=== PATIENT | male | born 1955 | race Caucasian/White ===

== ENCOUNTER 2019-03-30 06:00 | Day surgery (SDC) | payer BC, MEDICAID, OTHER ==
[~2019-03-30 06:00] MED LIST: Dextrose 5%-0.45% NaCl 1,000 ML IV SCH; Sodium Chloride 0.9% 10 ML Syringe FLUSH PRN
[2019-03-30] MEDS ORDERED: Midazolam 1 MG/ML 2 ML SDV IV ONE ×3 (06:01→07:03)
[2019-03-30] MEDS ORDERED: fentaNYL 100 MCG/2 ML SDV IV ONE ×3 (06:01→07:01)
[2019-03-30] MEDS ORDERED: fentaNYL 100 MCG/2 ML SDV ONE (06:14)
[2019-03-30] MEDS ORDERED: Midazolam 1 MG/ML 2 ML SDV ONE (06:14)
--- NOTE | 2019-03-30 07:53 | OR ---
DATE: 03/30/2019 PROCEDURE: Esophagogastroduodenoscopy, NBI, and multiple pinch biopsies. INSTRUMENT USED: [id number]-HQ190 Olympus video panendoscope. PREMEDICATIONS: No oral or topical anesthesia used. Fentanyl 100 mcg intravenous, Versed 1.5 mg intravenous, nasal O2 cannula. The procedure was done under pulse oximetry, BP recording, and diagnostic cardiac sonographer. INDICATION: The patient with known Atkins esophagus. Surveillance esophagogastroduodenoscopy is performed for detection of any dysplasia or malignancy, endoscopic hemostasis therapy if needed. DESCRIPTION OF PROCEDURE: The scope was passed with ease. Adequate visualization of the esophagus was made from proximal to distal areas. No upper esophageal lesions identified. No distal esophageal stricture. No uphill or downhill esophageal varices. No Yolanda-Mak tear. No evidence of erosive esophagitis by [place] criteria. No esophageal polyp or tumor mass identified. Proximally, encroaching pink columnar epithelium was noted at around 35 cm distal to the oral verge, NBI and magnification views were made, photographs were taken. Four-quadrant biopsies were taken at 2 cm distance apart from the area 35 cm distal to the oral verge and sent for any histopathologic evidence of dysplasia. No proximal gastric varices noted. Gastric fundus examination by retroflexion showed no polypoid lesions. No gastric ulcer, malignant mass, or vascular ectasia identified. The examination of the stomach was extremely limited due to the presence of a large amount of food material. Duodenal bulb showed no ulcer. Visualized second part of the duodenum was unremarkable. No bleeding was noted from any of the visualized areas at the completion of examination. IMPRESSION: 1. Gastroparesis diabeticorum. 2. Atkins esophagus. The patient tolerated the procedure well. [facility] /[id number]
[2019-03-30 09:09] VITALS: BP 123/59; PULSE 77
== END 2019-03-30 09:14 | disposition home or self-care (01) ==
LOC: DL.ENDO 06:00
PROVIDERS: ATTEND Internal Medicine Gastroenterology
DX: K22.70 Barrett's esophagus without dysplasia (principal); K21.0 Gastro-esophageal reflux disease with esophagitis; E11.43 Type 2 diabetes mellitus with diabetic autonomic (poly)neuropathy; K31.84 Gastroparesis; E78.5 Hyperlipidemia, unspecified; I25.10 Atherosclerotic heart disease of native coronary artery without angina pectoris; M10.9 Gout, unspecified; N40.0 Benign prostatic hyperplasia without lower urinary tract symptoms; I12.9 Hypertensive chronic kidney disease with stage 1 through stage 4 chronic kidney disease, or unspecified chronic kidney disease; E11.22 Type 2 diabetes mellitus with diabetic chronic kidney disease; N18.9 Chronic kidney disease, unspecified
CPT/HCPCS: 43239; J2250; J3010; J7042

== ENCOUNTER 2021-06-22 19:23 | Observation (INO) | payer OTHER, MEDICARE ==
[2021-06-22] MEDS ORDERED: ceFAZolin 1 GM in Sodium Chloride 0.9% 50 ML IV ONE (20:56)
[2021-06-22] MEDS ORDERED: fentaNYL 100 MCG/2 ML SDV IVPUSH ONE (20:57)
[2021-06-22 21:25] LABS: ANION GAP 15.1 mEq/L (7-13); CHLORIDE,CL 102 mmol/L (98-107); SODIUM,NA 137 mmol/L (136-145)
[2021-06-22] MEDS ORDERED: Bisacodyl 5 MG Tab PO PRN (23:13)
[2021-06-22] MEDS ORDERED: oxyCODONE 5 MG Tab PO PRN (23:13)
[2021-06-22] MEDS ORDERED: Morphine 2 MG/ML SYRINGE IVPUSH PRN (23:13)
[2021-06-22] MEDS ORDERED: Docusate Sodium 100 MG Cap PO PRN (23:13)
[2021-06-22] MEDS ORDERED: Ondansetron 4 MG/2 ML SDV IVPUSH PRN (23:13)
[2021-06-22] MEDS ORDERED: 50% Dextrose in Water 50 ML Syringe IVPUSH PRN (23:24)
[2021-06-22] MEDS ORDERED: Glucagon,Human Recombinant 1 MG Vial IM PRN (23:24)
[2021-06-22] MEDS ORDERED: Fludrocortisone 0.1 MG Tab PO SCH (23:30)
[2021-06-22] MEDS ORDERED: SEMAGLUTIDE 2 MG/1.5 ML SQ SCH (23:30)
[2021-06-22] MEDS ORDERED: Cyanocobalamin (Vitamin B12) 1,000 MCG/ML SDV IM SCH (23:30)
[2021-06-22] MEDS: Acetaminophen 325 MG Tab PO PRN (23:46)
[2021-06-22] MEDS: cloNIDine 0.1 MG Tab PO SCH (23:47)
[2021-06-23] MEDS: Acetaminophen 325 MG Tab PO PRN ×2 (04:36→10:29)
[2021-06-23] MEDS ORDERED: Omeprazole 20 MG Cap.CR PO SCH (06:00)
[2021-06-23] MEDS: cloNIDine 0.1 MG Tab PO SCH ×2 (06:38→14:06)
[2021-06-23] MEDS ORDERED: FLAXSEED OIL 1000 MG PO SCH (09:00)
[2021-06-23] MEDS ORDERED: Furosemide 20 MG Tab PO SCH (09:00)
[2021-06-23] MEDS ORDERED: Cholecalciferol (Vitamin D3) 25 MCG Tab PO SCH (09:00)
[2021-06-23] MEDS ORDERED: Aspirin 325 MG Tab.EC PO SCH (09:00)
[2021-06-23] MEDS ORDERED: Calcitriol 0.25 MCG Cap PO SCH (09:00)
[2021-06-23] MEDS ORDERED: Metoprolol Succinate 50 MG Tab.ER PO SCH (09:00)
[2021-06-23] MEDS ORDERED: Enoxaparin 40 MG/0.4 ML Syringe SUBCUT SCH (09:00)
[2021-06-23] MEDS: Ferrous Sulfate 325 MG Tab PO SCH ×2 (10:28→13:40)
[2021-06-23] MEDS: Insulin Lispro 100 Units/ML 3 ML Vial SUBCUT SCH ×2 (10:32→13:40)
[2021-06-23 13:23] VITALS: BP 118/54; PULSE 76
[2021-06-23] MEDS ORDERED: Rosuvastatin 10 MG Tab PO SCH (21:00)
[2021-06-23] MEDS ORDERED: Insulin Glarg,Human.Rec.Analog 100 Unit/ML SUBCUT SCH (21:00)
[2021-06-23] MEDS ORDERED: VALSARTAN 40 MG PO SCH (21:00)
[2021-06-23] MEDS ORDERED: Tamsulosin 0.4 MG Cap.ER PO SCH (21:00)
== END 2021-06-23 13:30 | disposition home or self-care (01) ==
LOC: DL.ED 19:23 → DL.MS 22:47 → DL.ED 22:47
PROVIDERS: ADMIT Internal Medicine; ATTEND Internal Medicine
DX: S82.892A Other fracture of left lower leg, initial encounter for closed fracture (principal); I25.10 Atherosclerotic heart disease of native coronary artery without angina pectoris; E78.00 Pure hypercholesterolemia, unspecified; I10 Essential (primary) hypertension; K21.9 Gastro-esophageal reflux disease without esophagitis; N40.0 Benign prostatic hyperplasia without lower urinary tract symptoms; I12.9 Hypertensive chronic kidney disease with stage 1 through stage 4 chronic kidney disease, or unspecified chronic kidney disease; N18.9 Chronic kidney disease, unspecified; E11.22 Type 2 diabetes mellitus with diabetic chronic kidney disease; E53.8 Deficiency of other specified B group vitamins; E66.9 Obesity, unspecified; M10.9 Gout, unspecified; Z98.890 Other specified postprocedural states; Z95.5 Presence of coronary angioplasty implant and graft; Z20.822 Contact with and (suspected) exposure to COVID-19; W00.2XXA Other fall from one level to another due to ice and snow, initial encounter; Z79.82 Long term (current) use of aspirin; Z79.899 Other long term (current) drug therapy
CPT/HCPCS: 29515; 36415; 73590; 73610; 80053; 82009; 82947; 83605; 85025; 87635; 96365; 96372; 96375; 97161; 97165; 97530; 99285; A9270; G0378; J0690; J1650; J3010; U0002

== ENCOUNTER 2022-08-02 17:35 | Inpatient (IN) | payer OTHER, MEDICARE ==
[2022-08-02] MEDS ORDERED: Sodium Chloride 0.9% 1,000 ML IV ONE (18:46)
[2022-08-02 18:50] LABS: ANION GAP 18.3 mEq/L (7-13); CHLORIDE,CL 96 mmol/L (98-107); SODIUM,NA 134 mmol/L (136-145)
[2022-08-02 19:00] LABS: ESTIMATED GFR 29 mL/min (>=60)
[2022-08-02] MEDS ORDERED: Vancomycin 1 GM SDV ONE (19:37)
[2022-08-02] MEDS ORDERED: Acetaminophen/HYDROcodone 325-5 MG Tab PO PRN (20:43)
[2022-08-02] MEDS ORDERED: Ondansetron 4 MG/2 ML SDV IVPUSH PRN (20:43)
[2022-08-02] MEDS ORDERED: Docusate Sodium 100 MG Cap PO PRN (20:43)
[2022-08-02] MEDS ORDERED: Acetaminophen 325 MG Tab PO PRN (20:43)
[2022-08-02] MEDS ORDERED: 50% Dextrose in Water 50 ML Syringe IVPUSH PRN (20:49)
[2022-08-02] MEDS ORDERED: Glucagon,Human Recombinant 1 MG Vial IM PRN (20:49)
[2022-08-02] MEDS ORDERED: VALSARTAN 40 MG PO SCH (21:00)
[2022-08-02] MEDS ORDERED: Insulin Glarg,Human.Rec.Analog 100 Unit/ML SUBCUT SCH (21:00)
[2022-08-02] MEDS ORDERED: Ferrous Sulfate 325 MG Tab PO SCH (21:00)
[2022-08-02] MEDS ORDERED: Rosuvastatin 10 MG Tab PO SCH (21:30)
[2022-08-02] MEDS ORDERED: Tamsulosin 0.4 MG Cap.ER PO SCH (21:30)
[2022-08-02] MEDS: cloNIDine 0.1 MG Tab PO SCH (22:55)
[2022-08-02] MEDS: Heparin Sodium 5,000 Units/ML Vial SUBCUT SCH (22:59)
[2022-08-02] MEDS: Insulin Lispro 100 Units/ML 3 ML Vial SUBCUT SCH (23:01)
[2022-08-03] MEDS: cloNIDine 0.1 MG Tab PO SCH (06:02)
[2022-08-03 08:13] VITALS: BP 120/46; PULSE 78
[2022-08-03] MEDS: Insulin Lispro 100 Units/ML 3 ML Vial SUBCUT SCH (08:51)
[2022-08-03] MEDS: Heparin Sodium 5,000 Units/ML Vial SUBCUT SCH (08:54)
[2022-08-03] MEDS ORDERED: Metoprolol Succinate 50 MG Tab.ER PO SCH (09:00)
[2022-08-03] MEDS ORDERED: Fludrocortisone 0.1 MG Tab PO SCH (09:00)
[2022-08-03] MEDS ORDERED: FOLIC ACID 0.8 MG PO SCH (09:00)
[2022-08-03] MEDS ORDERED: Loratadine 10 MG Tab PO SCH (09:00)
[2022-08-03] MEDS ORDERED: Aspirin 325 MG Tab.EC PO SCH (09:00)
[2022-08-03] MEDS ORDERED: Furosemide 20 MG Tab PO SCH (09:00)
[2022-08-03] MEDS ORDERED: Calcium Carbonate 500 MG Tab.Chew PO SCH (09:00)
[2022-08-03] MEDS ORDERED: FLAXSEED OIL 1000 MG PO SCH (09:00)
[2022-08-03] MEDS ORDERED: Cholecalciferol (Vitamin D3) 25 MCG Tab PO SCH (09:00)
[2022-08-03] MEDS ORDERED: Calcitriol 0.25 MCG Cap PO SCH (09:00)
[2022-08-03] MEDS ORDERED: Omeprazole 20 MG Cap.CR PO SCH (09:00)
[2022-08-03] MEDS ORDERED: Cyanocobalamin (Vitamin B12) 1,000 MCG/ML SDV IM SCH (21:00)
== END 2022-08-03 10:30 | DRG 639 ==
LOC: DL.ED 17:35 → DL.MS 19:47
PROVIDERS: ADMIT Internal Medicine; ATTEND Internal Medicine
DX: E11.628 Type 2 diabetes mellitus with other skin complications (principal); L03.031 Cellulitis of right toe; N18.30 Chronic kidney disease, stage 3 unspecified; D63.1 Anemia in chronic kidney disease; H35.30 Unspecified macular degeneration; E78.00 Pure hypercholesterolemia, unspecified; I25.10 Atherosclerotic heart disease of native coronary artery without angina pectoris; K21.9 Gastro-esophageal reflux disease without esophagitis; N40.0 Benign prostatic hyperplasia without lower urinary tract symptoms; M10.9 Gout, unspecified; E53.8 Deficiency of other specified B group vitamins; E87.5 Hyperkalemia; E11.22 Type 2 diabetes mellitus with diabetic chronic kidney disease; I12.9 Hypertensive chronic kidney disease with stage 1 through stage 4 chronic kidney disease, or unspecified chronic kidney disease; Z79.82 Long term (current) use of aspirin; Z79.4 Long term (current) use of insulin; Z79.899 Other long term (current) drug therapy; Z95.5 Presence of coronary angioplasty implant and graft; Z98.890 Other specified postprocedural states
CPT/HCPCS: 36415; 73620-RT; 80048; 80053; 80202; 82009; 82947; 83605; 85025; 86140; 87040; 96360; 99222; 99239; 99284; 99284-25; A9270-GY; J1644; J1815-GY; J3370; J7030; J7050